=== PATIENT | female | born 1965 | race Caucasian/White ===

== ENCOUNTER 2021-01-24 20:11 | Emergency (ER) | payer OTHER ==
[~2021-01-24] VITALS: Ht 167.6 cm; Wt 56.7 kg
[2021-01-24 20:40] VITALS: BP 125/67
[2021-01-24] MEDS ORDERED: ADDERALL 30 MG30 MG PO (20:44)
[2021-01-24] MEDS ORDERED: MELOXICAM15 MG PO (23:08)
[2021-01-24] MEDS ORDERED: MEDROLDOSEPACK PO (23:08)
== END 2021-01-24 23:18 | disposition home or self-care (01) ==
LOC: M.ERS 20:11
DX: S76.112A Strain of left quadriceps muscle, fascia and tendon, initial encounter (principal); F17.210 Nicotine dependence, cigarettes, uncomplicated; Z79.899 Other long term (current) drug therapy; X58.XXXA Exposure to other specified factors, initial encounter; Y93.89 Activity, other specified; Y92.89 Other specified places as the place of occurrence of the external cause; Y99.8 Other external cause status